=== PATIENT | female | born 1995 | race Caucasian/White ===

== ENCOUNTER 2017-02-20 21:25 | Emergency (ER) | payer OTHER ==
[~2017-02-20 21:25] MED LIST: BENADRYL25 M1 PO; BENTYL20 MG PO; PHENERGAN PO
[2017-02-20] MEDS ORDERED: GABAPENTIN300 MG PO (21:35)
[2017-02-20] MEDS ORDERED: BACLOFEN10 MG PO (21:36)
[2017-02-20] MEDS ORDERED: HYDROCODON-ACE1 EAC7 PO (21:36)
[2017-02-20 22:15] LABS: URINE SOURCE CLEAN CATCH
[2017-02-20 22:17] LABS: URINE APPEARANCE CLEAR; URINE BILIRUBIN NEG (NEG); URINE BLOOD 2+ (NEG); URINE COLOR YELLOW; URINE GLUCOSE NEG (NORM); URINE KETONE NEG (NEG); URINE LEUKOCYTE ESTERASE 1+ (NEG); URINE NITRATE NEG (NEG); URINE PROTEIN NEG (NEG); URINE SPECIFIC GRAVITY 1.025 (1.003-1.035); URINE UROBILINOGEN 0.2 MG/DL (NORM)
[2017-02-20 22:18] LABS: MICRO INDICATED? YES
[2017-02-20 22:23] LABS: CULTURE INDICATED? YES; URINE BACTERIA 1+ (NEG); URINE SQUAMOUS EPITHELIAL CELL OCCAS /[HPF]; URINE TRANSITIONAL EPI CELLS FEW /[HPF]
[2017-02-20 22:24] LABS: URINE MUCUS PRESENT
[2017-02-20 22:38] LABS: BASOPHIL# 0.1 X10e3 (0-0.3); EOSINOPHIL# 0.3 X10e3 (0-0.7); EOSINOPHIL% 3.3 % (0.0-7.0); HEMATOCRIT 39.1 % (35.0-45.0); HEMOGLOBIN 13.5 gm/dL (12.0-16.0); LYMPHOCYTE# 2.1 X10e3 (1.0-3.5); MEAN CELL VOLUME 86.9 FL (83-96); MEAN CORPUSCULAR HEMOGLOBIN 30.1 PG (28-34); MEAN CORPUSCULAR HGB CONC 34.7 g/dL (30-36); MEAN PLATELET VOLUME 8.8 FL (6.5-11.5); MONOCYTE# 0.4 X10e3 (0-1.0); MONOCYTE% 5.2 % (3.0-12.0); NEUTROPHIL# 5.3 X10e3 (1.5-7.1); NEUTROPHIL% 64.5 % (40-75); PLATELET COUNT 206 X10e3 (140-420); RED BLOOD COUNT 4.49 X10e (3.90-5.30); RED CELL DISTRIBUTION WIDTH 13.9 % (11.0-15.5); WHITE BLOOD COUNT 8.2 X10e3 (4.0-10.5)
[2017-02-20 22:40] LABS: DIFF IND NO
[2017-02-22 20:10] LABS: CHLAMYDIA TRACH Not Detected (Not Detected); N GONOR Not Detected (Not Detected)
== END 2017-02-20 23:50 | disposition home or self-care (01) ==
LOC: SED 21:25
PROVIDERS: Physician Assistant
DX: N73.9 Female pelvic inflammatory disease, unspecified (principal); F41.9 Anxiety disorder, unspecified; F32.9 Major depressive disorder, single episode, unspecified; Z87.440 Personal history of urinary (tract) infections; Z88.2 Allergy status to sulfonamides; Z88.8 Allergy status to other drugs, medicaments and biological substances; Z98.890 Other specified postprocedural states
CPT/HCPCS: 36415; 81003; 84703; 85025; 87086; 87210; 87491; 87591; 87808; 87905; 96361; 96372; 96374; 96375; 99284; J0696; J1200; J2270; J2405

== ENCOUNTER 2017-02-21 01:01 | Emergency (ER) | payer OTHER ==
--- NOTE | ~2017-02-21 | CT2 ---
[facility] A Service of [facility] RADIOLOGY TEXT RESULTS PATIENT: WALLY PEREZ LOCATION: SED : [birth year] UNIT #: [id number] AGE: [address]: Emilio Faye MD SEX: F ORDER DR: [id number] [address] [address] [id number] E MR#: [id number] Acc #: [id number] NAME: WALLY PEREZ : 1995 SEX: F STUDY DATE/TIME: 02/21/2017 3:17 UNIT: SED ROOM: STUDY DESCRIPTION: CT Abd and Pelv W Cont Attending Physician: Emilio Faye M.D. Ordering Physician: Anderson Sloan P.A.-C. Primary Care Physician: Primary Care Physician No MEDICAL IMAGING REPORT This report is preliminary unless electronic signature is present. EXAM CT abdomen and pelvis INDICATION Lower abdominal pain and nausea for [address] of the abdomen and pelvis with p.o. and IV contrast (100 mL Isovue-370 IV contrast). Coronal and sagittal reconstructions were obtained. This CT exam was performed with one or more of the following radiation dose reduction techniques: automatic exposure control, adjustment of mA and/or kV according to patient size, and iterative reconstruction. COMPARISON None available. FINDINGS In the right lower lobe, there is a 0.8 cm low attenuation pulmonary nodule that is only partially imaged on the CT of the abdomen. This has internal density of -33 Hounsfield units, strongly suggesting a benign lesion such as a hamartoma. This should be followed. Malignancy is considered unlikely given the patient's lack of a known history and young age. There is a 1.8 cm low attenuation lesion in the posterior right hepatic lobe abutting the capsule of the liver. This is in segment 7). This is nonspecific however probably represents a hyperdense cyst or hemangioma. Dedicated MR imaging of the liver would be recommended. The pancreas, spleen, and adrenal glands are within normal limits. There is a 2.0 mm nonobstructing calculus in the superior right kidney. There is no hydronephrosis or ureteral calculi. The bowel is not dilated. The [facility] A Service of [facility] & [facility] RADIOLOGY TEXT RESULTS PATIENT: WALLY PEREZ LOCATION: SED : [birth year] UNIT #: [id number] AGE: [address]: Emilio Faye MD SEX: F ORDER DR: gallbladder is not distended. The appendix is normal. The abdominal aorta is normal in caliber. No pathologically enlarged retroperitoneal or mesenteric lymph nodes. The uterus and ovaries are within normal limits. Bladder is unremarkable. No acute osseous abnormalities. IMPRESSION 1. No acute findings in the abdomen or pelvis to account for the patient's symptoms. 2. Incidental finding of a 1.8 cm mass in the right hepatic lobe. This probably represents a benign cyst or hemangioma, however it is incompletely characterized on this routine CT scan. I would recommend dedicated imaging with a MRI or CT scan of the abdomen utilizing a liver protocol. 3. 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 Metastatic disease or primary pulmonary malignancy are unlikely given the lack of a known malignancy and the patient's young age. Dictated by... Daniel De La Cruz M.D. THIS IS AN ELECTRONICALLY VERIFIED REPORT Daniel De La Cruz M.D. at 02/21/2017 11:40 PM [employer] TD: 02/21/2017 11:44 JOB #: [id number] MEDICAL IMAGING REPORT Page 1 of 1
[~2017-02-21 01:01] MED LIST changes: +BACLOFEN10 MG PO; +GABAPENTIN300 MG PO; +HYDROCODON-ACE1 EAC7 PO
[2017-02-21 02:13] LABS: ALBUMIN SERUM 4.3 g/dL (3.5-5.0); ALKALINE PHOSPHATASE 56 U/L (32-92); ALT (SGPT) 11 U/L (10-40); AMYLASE 80 U/L (0-46); AST (SGOT) 17 U/L (10-42); BILIRUBIN,TOTAL 0.3 mg/dL (0.2-2.0); BLOOD UREA NITROGEN 15 mg/dL (9-23); CALCIUM SERUM 8.9 mg/dL (8.4-10.2); CARBON DIOXIDE 23 mmol/L (22-31); CHLORIDE 107 mmol/L (100-111); CREATININE SERUM 0.6 mg/dL (0.6-1.4); GLOM FILT RATE Estimated 128.5 mL/min (>60); GLUCOSE FASTING 89 mg/dL (70-110); LIPASE 87 U/L (22-51); POTASSIUM 3.2 mmol/L (3.5-5.1); PROTEIN TOTAL SERUM 6.9 g/dL (6.0-8.3); SODIUM 138 mmol/L (135-145)
[2017-02-21 02:16] LABS: BILIRUBIN, DIRECT <0.1 mg/dL (0.0-0.2); BILIRUBIN,INDIRECT 0.2 mg/dL (0.0-0.9)
== END 2017-02-21 04:25 | disposition home or self-care (01) ==
LOC: SED 01:01
PROVIDERS: Physician Assistant
DX: R10.9 Unspecified abdominal pain (principal); K58.9 Irritable bowel syndrome, unspecified; F41.9 Anxiety disorder, unspecified; Z88.2 Allergy status to sulfonamides; Z88.8 Allergy status to other drugs, medicaments and biological substances; Z79.899 Other long term (current) drug therapy
CPT/HCPCS: 74177; 80048; 80076; 82150; 83690; 96374; 96375; 99284; J1200; J2270; J2405; Q9967

== ENCOUNTER 2017-02-21 17:48 | Emergency (ER) | payer OTHER | END 2017-02-21 18:57 | disposition home or self-care (01) | LOC: SED 17:48 | DX: K29.70 Gastritis, unspecified, without bleeding (principal); Z88.2 Allergy status to sulfonamides; Z88.8 Allergy status to other drugs, medicaments and biological substances; Z79.899 Other long term (current) drug therapy | CPT/HCPCS: 99283 ==